=== PATIENT | female | born 1980 | race Caucasian/White ===

== ENCOUNTER 2016-11-27 11:16 | Emergency (ER) | payer BC ==
[2016-11-27 12:13] VITALS: BP 122/59
--- NOTE | 2016-11-27 12:43 | UC ---
Hip/Pelvis Pain - HPI Summary HPI Summary: complaint of right hip pain for approx 2 years recent exacerbation of hip pain yesterday denies trauma, was active during the day previous and woke up with pain today pain is conatant aching pain when ambulating she gets a sharp pain in her hip that radiates into front of her thigh took some tyelnol PM with some relief last night usually sees the chiropractic treatments with relief chronic lower back pain that is currently managed well with chirpractic care denies fever and incontinence - History Of Current Complaint Chief Complaint: UCLowerExtremity Stated Complaint: HIP PAIN Time Seen by Provider: 11/27/16 12:06 Hx Obtained From: Patient - Allergies/Home Medications Allergies/Adverse Reactions: Allergies Allergy/AdvReac Type Severity Reaction Status Date / Time No Known Allergies Allergy Verified 11/27/16 12:13 Home Medications: Home Medications Diphenhydramine-Acetaminophen [Tylenol Pm Extra Strength 500-25 mg] 1 tab PO 11/10 [History] Naproxen TAB* [Naprosyn 250 mg TAB*] 250 mg PO Q8H PRN 11/27/16 [History Confirmed 11/27/16] PMH/Surg Hx/FS Hx/Imm Hx Previously Healthy: Yes - Surgical History Surgical History: Yes Surgery Procedure, Year, and Place: hysterectomy, back surgery - Family History Known Family History: Negative: Cardiac Disease, Hypertension, Diabetes - Social History Occupation: Employed Full-time Lives: With Family Alcohol Use: Rare Substance Use Type: None Smoking Status (MU): Never Smoked Tobacco Review of Systems Constitutional: Negative Skin: Negative Eyes: Negative ENT: Negative Respiratory: Negative Cardiovascular: Negative Gastrointestinal: Negative Genitourinary: Negative Motor: Negative Neurovascular: Negative Musculoskeletal: Other: - right hip pain Neurological: Negative Psychological: Negative All Other Systems Reviewed And Are Negative: Yes Physical Exam Triage Information Reviewed: Yes Appearance: No Pain Distress, Well-Nourished Vital Signs: Initial Vital Signs Temp 97.8 F 11/27/16 12:08 Pulse 61 11/27/16 12:08 Resp 18 11/27/16 12:08 BP 122/59 11/27/16 12:08 Pulse Ox 100 11/27/16 12:08 Vital Signs Reviewed: Yes Eyes: Positive: Conjunctiva Clear ENT: Positive: Pharynx normal, TMs normal Neck: Positive: No Lymphadenopathy Respiratory: Positive: Lungs clear, Normal breath sounds, No respiratory distress Cardiovascular: Positive: RRR, No Murmur, Pulses Normal Abdomen Description: Positive: Nontender, No Organomegaly, Soft Bowel Sounds: Positive: Present Musculoskeletal: Positive: Other: - Hip No bony deformities or inflammation in right hip, tenderness in right hip joint. Normal ROM upon flexion & extension, internal & external rotation, abduction. pain with adduction- feels a "clunk"in her hip. Full strength in hip flexors/extensors, adductors/ abductors. walking with a limp Neurological: Positive: Alert Psychological Exam: Normal Skin Exam: Normal Hip Injury Course/Dx - Differential Dx/Diagnosis Differential Diagnosis/HQI/PQRI: Arthritis, Dislocation, Sprain, Strain Provider Diagnoses: right hip pain- osteoarthritis Discharge - Discharge Plan Condition: Stable Disposition: HOME Patient Education Materials: Osteoarthritis (ED), Hip Pain (ED) Referrals: No Primary Care Phys,NOPCP [Primary Care Provider] - [facility] [place] [facility] [Outside] Additional Instructions: Your blood pressure is pre-hypertensive reading. Please contact your primary care provider within 1 day -4 weeks for further evaluation. Increase fluids and rest Take naproxen or ibuprofen to reduce pain and inflammation. call physical therapy for further evaluation and treatment. Please review your discharge instructions. If your symptoms do not improve please call your primary care provider or return to urgent care.
--- NOTE | 2016-11-27 13:18 | RAD ---
INDICATION: Right hip pain. COMPARISON: There are no prior studies available for comparison. TECHNIQUE: An AP view of the pelvis and frontal and lateral views of the right hip were obtained. FINDINGS: The bones are in normal alignment. No fracture is seen. There is mild bilateral osteoarthritic change in the hips. IMPRESSION: MILD BILATERAL OSTEOARTHRITIC CHANGE IN THE HIPS.
== END 2016-11-27 13:51 | disposition home or self-care (01) ==
LOC: UCEAST 11:16 → MERGE 11:16 → UCEAST 13:51
DX: M16.11 Unilateral primary osteoarthritis, right hip (principal); M25.551 Pain in right hip
CPT/HCPCS: 99201; G0463

== ENCOUNTER 2018-12-23 10:42 | Emergency (ER) | payer BC ==
[2018-12-23 11:18] VITALS: BP 138/79
[2018-12-23] MEDS ORDERED: diPHENhydraMINE IV* 50 MG/ML 1 ml VIAL (BENADRYL) IV ONE (11:48)
[2018-12-23] MEDS ORDERED: Metoclopramide IV* 5 MG/ML 2 ML VIAL IV ONE (11:48)
[2018-12-23] MEDS ORDERED: NS 0.9% 500 ML* 500 ML IV ONE (11:48)
[2018-12-23] MEDS ORDERED: Ketorolac INJ* 30 MG/ML 1 ML VIAL IV PUSH ONE (11:48)
--- NOTE | 2018-12-23 12:42 | UC ---
Headache HPI - HPI Summary HPI Summary: 38-year-old female with history of migraine headaches presents with 6 days of continuous bandlike headache around her head. Her Imitrex is not controlling a headache at this point. she has had intermittent nausea and vomiting. There is photophobia, phonophobia. She has never seen a neurologist nor has she had an MRI. There is family histories for headaches in her mother. - History Of Current Complaint Chief Complaint: UCHeadache Stated Complaint: HEADACHE Time Seen by Provider: 12/23/18 11:23 Hx Obtained From: Patient Pain Intensity: 6 - Allergies/Home Medications Allergies/Adverse Reactions: Allergies Allergy/AdvReac Type Severity Reaction Status Date / Time No Known Allergies Allergy Verified 12/23/18 11:18 Home Medications: Home Medications SUMAtriptan succinate [Imitrex] 50 mg PO SEE INSTRUCTIONS 12/23/18 [History Confirmed 12/23/18] Sertraline HCl [Zoloft] 25 mg PO DAILY WITH MEAL 12/23/18 [History Confirmed ] PMH/Surg Hx/FS Hx/Imm Hx Neurological History: Migraine - Surgical History Surgical History: Yes Surgery Procedure, Year, and Place: hysterectomy, back surgery - Family History Known Family History: Positive: Other - Headaches in mother Negative: Cardiac Disease, Hypertension, Diabetes - Social History Lives: With Family Alcohol Use: Occasionally Substance Use Type: None Smoking Status (MU): Former Smoker Review of Systems All Other Systems Reviewed And Are Negative: Yes Constitutional: Negative: Fever Skin: Positive: Negative Eyes: Negative: Blurred Vision ENT: Positive: Negative Respiratory: Positive: Negative Gastrointestinal: Positive: Vomiting, Nausea Neurological: Positive: Headache. Negative: Weakness, Paresthesia, Numbness Physical Exam Triage Information Reviewed: Yes Appearance: Well-Appearing, No Pain Distress Vital Signs: Initial Vital Signs Temp 99.1 F 12/23/18 11:13 Pulse 91 12/23/18 11:13 Resp 18 12/23/18 11:13 BP 138/79 12/23/18 11:13 Pulse Ox 100 12/23/18 11:13 Vital Signs Reviewed: Yes Eyes: Positive: Conjunctiva Clear ENT: Negative: Nasal congestion, Nasal drainage, Sinus tenderness Neck: Positive: Supple. Negative: Nuchal Rigidity Respiratory: Positive: Lungs clear Cardiovascular: Positive: RRR Abdomen Description: Positive: Nontender, Soft Musculoskeletal: Positive: Strength Intact, ROM Intact Neurological: Positive: Alert Psychological Exam: Normal Skin Exam: Normal Re-Evaluation - Re-Evaluation First Eval Re-Evaluation Time: 12:41 Change: Improved Second Eval Change: Improved - resolved Headache Course/Dx - Course Course Of Treatment: patient with history of migraine headaches with 6 days of headache. Not typical given its bandlike distribution. Patient with history of same. No high -risk features. Resolved with treatment here consisting of a ventral, Reglan, Toradol and IV fluids. We will prescribe promethazine, referred to neurology and suggest outpatient MRI. - Differential Dx/Diagnosis Differential Diagnosis/HQI/PQRI: Meningitis, Migraine, Tension Headache, Other - Cluster headache Provider Diagnosis: Acute headache Discharge - Sign-Out/Discharge Documenting (check all that apply): Patient Departure All imaging exams completed and their final reports reviewed: No Studies - Discharge Plan Condition: Improved Disposition: HOME Prescriptions: Promethazine TAB* [Phenergan Tab*] 25 mg PO Q8H PRN #20 tab PRN Reason: headache/nausea Patient Education Materials: Acute Headache (ED) Referrals: Nina Lerma MD [Primary Care Provider] - Huber Quintero MD [Medical Doctor] - Additional Instructions: Call your doctor today to schedule prompt follow-up. Name of neurologist has been given. Call them to schedule an appointment. If he has not had advanced imaging such as MRI this may be the next. Talked to her doctor about this. Stay well-hydrated. Caffeine may help. If prescribed medication does not stop headache you can take it with Benadryl, ibuprofen, caffeine and with a bottle of water. Return with fever, worsened symptoms, numbness/weakness, blurred vision or other concerns. - Billing Disposition and Condition Condition: IMPROVED Disposition: Home
== END 2018-12-23 13:16 | disposition home or self-care (01) ==
LOC: UCEAST 10:42
DX: R51 Headache (principal); R11.2 Nausea with vomiting, unspecified; Z87.891 Personal history of nicotine dependence
CPT/HCPCS: 96360; 96374; 96375; 99212; G0463; J1200; J1885; J2765

== ENCOUNTER 2020-02-10 06:00 | Inpatient (IN) ==
[~2020-02-10 06:00] MED LIST: Lactated Ringers 1000 ml BAG 1,000 ML IV SCH
[2020-02-10] MEDS ORDERED: ceFAZolin 2 GM PREMIX in ORs 2 GM/50 ML BAG ONE (06:23)
[2020-02-10] MEDS ORDERED: Heparin 5000 UNITS/ML VIAL(*) 1 ml vial ONE (06:23)
[2020-02-10] MEDS ORDERED: ceFAZolin 1 GM ADVAN(*) 1 GM ADDV.VIAL IVPB ONE (06:23)
[2020-02-10] MEDS ORDERED: Bupivacaine 0.25% EPI 200,000 30 ML SDV ONE (07:05)
[2020-02-10] MEDS ORDERED: Dexamethasone IV 4 MG/ML VIAL 1 ml VIAL ONE ×2 (07:16→11:50)
[2020-02-10] MEDS ORDERED: Dexmedetomidine 200 mcg/2 ml 2 ml VIAL (200 mcg) ONE (07:16)
[2020-02-10] MEDS ORDERED: fentaNYL 100 mcg/2 ml 50 MCG/ML VIAL ONE ×2 (07:16→09:04)
[2020-02-10] MEDS ORDERED: Acetaminophen IV 1 GM/100ML 100 ML ONE (07:16)
[2020-02-10] MEDS ORDERED: Ondansetron 4 mg VIAL 2 MG/ML 2 ml VIAL ONE (07:16)
[2020-02-10] MEDS ORDERED: Propofol 10 MG/ML 20 ML BTL ONE (07:16)
[2020-02-10] MEDS ORDERED: Rocuronium 50 mg VIAL 10 mg/ml 5 ml VIAL (50 mg) ONE ×3 (07:16→09:32)
[2020-02-10] MEDS ORDERED: Succinylcholine 200 mg VIAL 20 mg/ml 10 ml VIAL (200 mg) ONE (07:16)
[2020-02-10] MEDS ORDERED: Midazolam 2 mg/2 ml VIAL 1 mg/ml 2 ml VIAL (2 mg) ONE (07:17)
[2020-02-10] MEDS ORDERED: diPHENhydraMINE IV 50 MG/ML 1 ml VIAL (BENADRYL) IV PRN (08:41)
[2020-02-10] MEDS ORDERED: Prochlorperazine 5 mg/ml 2 ml VIAL (10 mg) IV PRN (08:41)
[2020-02-10] MEDS ORDERED: Naloxone 0.4 mg VIAL 0.4 mg/ml 1 ml VIAL IV PRN (08:41)
[2020-02-10] MEDS ORDERED: HYDROmorphone 1 MG/1 ML SYRINGE ONE ×2 (09:44→11:18)
[2020-02-10] MEDS ORDERED: Desflurane 240 ML INH ONE (10:25)
[2020-02-10] MEDS: HYDROmorphone 1 MG/1 ML SYRINGE IV PRN ×5 (11:19→11:41)
[2020-02-10] MEDS ORDERED: Ondansetron 4 mg VIAL 2 MG/ML 2 ml VIAL IV PRN (12:42)
[2020-02-10] MEDS ORDERED: HYDROmorphone 0.5 MG/0.5 ML SYRINGE IV SLOW PU PRN (12:42)
[2020-02-10] MEDS ORDERED: HYDROcodone/ACET. 7.5/325 LIQ 15 ML UDC PO PRN ×2 (12:42→13:57)
[2020-02-10] MEDS: Lactated Ringers 1000 ml BAG 1,000 ML IV SCH ×2 (13:22→20:08)
[2020-02-10] MEDS: Heparin 5000 UNITS/ML VIAL(*) 1 ml vial SUBCUT SCH ×2 (15:19→22:25)
[2020-02-10] MEDS: Famotidine IV 10 MG/ML 2 ml VIAL (20 mg) IV SLOW PU SCH (22:19)
[2020-02-11] MEDS: Lactated Ringers 1000 ml BAG 1,000 ML IV SCH ×2 (02:46→09:41)
[2020-02-11] MEDS: Heparin 5000 UNITS/ML VIAL(*) 1 ml vial SUBCUT SCH ×2 (05:44→12:54)
[2020-02-11] MEDS: Famotidine IV 10 MG/ML 2 ml VIAL (20 mg) IV SLOW PU SCH (08:00)
[2020-02-11 12:06] VITALS: BP 118/67
== END 2020-02-11 14:05 | disposition home or self-care (01) | DRG 403 ==
LOC: AA 06:00 → SSU 12:27
PROVIDERS: ADMIT Surgery; ATTEND Surgery